=== PATIENT | male | born 1950 | race Caucasian/White ===

== ENCOUNTER → 2024-02-20 12:41 | Outpatient (CLI) | payer MEDICARE, SELFPAY ==
--- NOTE | 2024-02-20 | DI.MRI.S_ITS ---
PROCEDURE: MR ANKLE RT WO CON INDICATIONS: Pain in right foot TECHNIQUE: Noncontrast sagittal T1 spin echo and T2 fast spin echo with fat saturation, axial proton density fast spin echo and T2 fast spin echo with fat saturation, coronal T1 spin echo and T2 fast spin echo with fat saturation through the ankle/hindfoot. COMPARISON: [facility] [place], [place], XR FOOT 3 VIEWS WEIGHT BEARING RIGHT, 02/05/2024, 13:51. FINDINGS: Image quality: Excellent. Bones and joints: No acute trabecular bone injury or fracture. No hindfoot coalitions. No osteochondral injuries of the talar dome. Degenerative spurring is seen at the dorsal aspect of the talonavicular joint. Medial structures: The deltoid ligament and the spring ligament complex are intact. Moderate fluid is seen in the posterior tibialis, flexor digitorum longus, and flexor hallucis longus tendons sheaths compatible with tenosynovitis. The posterior tibial neurovascular bundle appears normal within the tarsal tunnel, without extrinsic mass effect. Lateral structures: Remote prior low-grade sprains of the anterior talofibular ligament and the calcaneofibular ligament. Posterior talofibular ligament is intact. The anterior and posterior tibiofibular ligaments are intact. Mild peroneus brevis and longus tendinosis. The sinus tarsi demonstrates normal fatty signal. Anterior structures: The tibialis anterior, extensor hallucis longus, and extensor digitorum longus tendons appear intact. Posterior and plantar structures: Small amount of fluid is seen in Kager's fat pad compatible with Achilles peritenonitis. Mild thickening of the tendon may also indicate tendinosis. Focal fluid signal is seen at the origin of the central band of the plantar fascia with surrounding soft tissue and osseous edema, consistent with focal fascial tearing. Findings are superimposed on chronic fascia but the. No osseous fracture is seen. A small mildly edematous calcaneal enthesophyte is present. No abductor digiti minimi muscle atrophy to suggest [place] neuropathy. IMPRESSION: 1. Focal high-grade partial tearing of the proximal plantar fascia with surrounding soft tissue and osseous edema, superimposed on chronic fasciitis. No osseous fracture. 2. Mild Achilles tendinosis and peritenonitis. 3. Moderate tenosynovitis of the medial flexor tendons. 4. Remote prior low-grade sprains of the anterior talofibular ligament and calcaneofibular ligament. 5. Mild peroneus brevis and longus tendinosis. Approved by: Uriel Vela M.D. on 02/21/2024 at 10:00
== END ==
PROVIDERS: Family Provider Nurse Practitioner; PCP Nurse Practitioner; Referring Provider Orthopaedic Surgery Foot and Ankle Surgery; Visit Provider Orthopaedic Surgery Foot and Ankle Surgery
DX: M76.61 Achilles tendinitis, right leg (principal); M72.2 Plantar fascial fibromatosis; S93.411A Sprain of calcaneofibular ligament of right ankle, initial encounter; S93.491A Sprain of other ligament of right ankle, initial encounter; M65.871 Other synovitis and tenosynovitis, right ankle and foot; M79.671 Pain in right foot
CPT/HCPCS: 73721

== ENCOUNTER 2025-01-09 19:15 | Emergency (ER) | payer MEDICARE, SELFPAY ==
[2025-01-09 19:15] VITALS: BP 167/78; PULSE 77; RESP 18; TEMP 36.4; O2SAT 96; BMI 25.7
--- NOTE | 2025-01-09 19:21 | DI.RAD.S_ITS ---
PROCEDURE: XR FINGER RT MIN 2V INDICATIONS: LAC injury R hand middle finger, cut w/ meat saw TECHNIQUE: AP hand, 2 views of the 3rd finger(s) acquired. COMPARISON: [facility], , XR FINGER(S) RIGHT, 02/24/2022, 16:36. FINDINGS: Bones: Overlying bandage. Oblique fracture of the 3rd digit distal phalanx. No dislocations. No suspicious bony lesions. Soft tissues: No suspicious soft tissue calcifications. IMPRESSION: Oblique fracture of the 3rd digit distal phalanx. Dictated by: Hieu Donis M.D. on 01/09/2025 at 20:05 Approved by: Hieu Donis M.D. on 01/09/2025 at 20:07
[2025-01-09] MEDS: TET,DIPH,PERTUSS(ACELL),VAC/PF 0.5 ML SYRINGE IM (19:32)
[2025-01-09] MEDS: cephALEXin 250 MG CAPSULE 500 MG PO (20:05)
[2025-01-09] MEDS: ACETAMINOPHEN 325 MG TABLET 975 MG PO (20:36)
--- NOTE | 2025-01-09 20:52 | ED_ITS ---
HPI - Wound/Laceration General Chief Complaint: Wound/Laceration Stated Complaint: finger laceration Time Seen by Provider: 01/09/25 19:26 Source: patient Mode of arrival: Ambulatory History of Present Illness HPI narrative: 74-year-old male was cutting piglet with a knife, sustained laceration to his left middle finger, few hours ago, bleeding, dressed the wound. Last tetanus greater than 5 years ago. No known drug allergies. No other injuries known. He does not take chronic blood thinner medications. Related Data Home Medications Medication Instructions Recorded Confirmed Fish Oil (Fish Oil 500 MG Softgel) 500 mg PO TID ##0 04/13/11 09/04/24 GLUCOSAMINE SULFATE 500 mg PO TID ##0 04/13/11 09/04/24 IBUPROFEN (Ibuprofen) 200 mg PO PRN ##0 04/13/11 09/04/24 VITAMIN B COMPLEX (Vitamin B 1 tab PO Q DAY ##0 04/13/11 09/04/24 Complex) [night restwith felipe] ##0 04/13/11 09/04/24 ascorbic acid (vitamin C) 500 mg 500 mg PO QDAY ##0 04/13/11 09/04/24 tablet cholecalciferol (vitamin D3) 50 2,000 iu PO Q DAY ##0 04/13/11 09/04/24 mcg (2,000 unit) capsule (Vitamin D3) SELENIUM (#SELENIUM) 200 mcg PO QDAY ##0 08/19/12 09/04/24 Saw [place] 500 mg PO TID ##0 08/19/12 09/04/24 lisinopril 20 mg tablet 20 mg PO ONCE PM 09/04/24 09/04/24 Previous Rx's Medication Instructions Recorded hydrochlorothiazide 25 mg tablet 25 mg PO QAM blood pressure #90 11/03/24 tabs sildenafil 50 mg tablet 50 mg PO DAILY PRN sexual activity 01/06/25 #20 tabs cephalexin 500 mg capsule 500 mg PO QID 7 days #28 caps 01/09/25 Allergies Allergy/AdvReac Type Severity Reaction Status Date / Time No Known Drug Allergies Allergy Verified 01/09/25 19:24 Patient History Surgical History (Updated 09/04/24 @ 08:48 by Rafael Conley MD) Status post cholecystectomy Status post knee surgery Family History (Updated 12/26/16 @ 00:00 by Conversion Provider) Father Heart disease Grandfather Cancer Grandmother Heart disease Mother Age: 94 Heart disease High cholesterol Stroke Exam Narrative Exam Narrative: GENERAL: Well-developed patient, in mild distress. HEAD: Atraumatic. Normocephalic. EYES: Pupils equal round and reactive. Extraocular motions intact. No scleral icterus. No injection or drainage. ENT: Nose without bleeding, purulent drainage. Throat without erythema, tonsillar hypertrophy or exudate. Airway patent. NECK: Trachea midline. Non tender CARDIOVASCULAR: Regular rate and rhythm without murmurs, gallops, or rubs. RESPIRATORY: Clear to auscultation. Breath sounds equal bilaterally. No wheezes, rales, or rhonchi. GASTROINTESTINAL: Abdomen soft, non-tender, nondistended. EXTREMITIES: No edema or joint tenderness. Right middle finger volar radial aspect laceration and distal phalanx. No other injuries obvious, can extend and flex finger at MCP PIP DIP. BACK: Nontender without deformity or crepitance. No flank tenderness. NEURO: AOx3. Motor functions grossly nonfocal SKIN: No rash or erythema of visible areas Initial Vital Signs Initial Vital Signs: Vital Signs Temperature 97.6 F 01/09/25 19:15 Pulse Rate 77 01/09/25 19:15 Respiratory Rate 18 01/09/25 19:15 Blood Pressure 167/78 H 01/09/25 19:15 Pulse Oximetry 96 01/09/25 19:15 Oxygen Delivery Method Room Air 01/09/25 19:15 Procedures Laceration Repair Laceration 1: Time of procedure: 21:53 Site: hand (Right distal middle finger) Side (If applicable): right Size (cm): 2 Description: linear (Curvilinear laceration) Depth: simple, single layer Local Anesthetic: bupivacaine 0.25% (digital block both sides with good effect) Amount of anesthesia used (mL): 3 Pre-repair: wound explored Skin layer closed with: nylon Skin layer suture size: 4-0 Number of sutures: 7 Technique: simple, interrupted Course Orders Ordered: Discontinued Medications Acetaminophen (Acetaminophen 325 Mg Tablet) 975 mg PO NOW ONE Stop: 01/09/25 20:30 Last Admin: 01/09/25 20:36 Dose: 975 mg Documented By: C Hydrocodone Bitart/Acetaminophen (Hydrocodone/Acet 5/325 Prepack) 1 bottle [facility] [place] DIRECTED ONE Stop: 01/09/25 21:53 Last Admin: 01/09/25 21:55 Dose: 1 bottle Documented By: CAMRYN Bacitracin (Bacitracin Oint 0.9 Gm Pckt) 1 applic TOP NOW ONE Stop: 01/09/25 21:53 Last Admin: 01/09/25 21:55 Dose: 1 applic Documented By: CAMRYN Cephalexin HCl (Cephalexin 250 Mg Capsule) 500 mg PO NOW ONE Stop: 01/09/25 19:48 Last Admin: 01/09/25 20:05 Dose: 500 mg Documented By: CAMRYN Diphtheria/Tetanus/Acell Pertussis (Tet,Diph,Pertuss(Acell),Vac/Pf 0.5 Ml Syringe) 0.5 ml IM .ONCE ONE Stop: 01/09/25 19:23 Last Admin: 01/09/25 19:32 Dose: 0.5 ml Documented By: VANITA Vital Signs Vital signs: Vital Signs - 8 hr 01/09/25 22:00 01/09/25 22:00 Pulse Rate 77 Respiratory Rate 18 Blood Pressure 148/63 H Pulse Oximetry 95 MDM - Wound/Laceration MDM Narrative Medical decision making narrative: Right middle finger laceration cutting piglet with knife. Digital block with Marcaine, primary closure. X-ray was suspicious for distal tuft fracture. Given oral antibiotics for suspected open fracture, Keflex 1st dose in the emergency department, prescription sent to his pharmacy. Pain medication home pack hydrocodone. Discharge home, we will be flown back to his home [place] boyfriend who is a pilot control operator who was waiting at bedside. Wound check advised with Orthopedic surgery, clinic contact information provided. Discharge Plan Departure Patient Disposition: Home Clinical Impression: Finger laceration, Finger fracture Instructions: How to Care for a Laceration After Repair, DI for Laceration Repair Activity Restrictions/Additional Instructions: Laceration right middle fingertip area, I could not see any tendinous structures, the laceration was sort of in the lateral aspect around, however there was a bony fracture, it is possible to have a tendon injury as well. The fingertip was sutured into place to create better alignment. Antibiotics were given, 1st dose cephalexin, further antibiotics sent to your pharmacy, take antibiotics as directed. Take pain medications as directed. Injury at increased wound of poor healing, infection, might require future revision or opening or even fingertip amputation. Advised recheck with Orthopedic surgery, recheck this Sunday in ortho clinic. Contact information given for Dr. Montes, who was local orthopedic surgeon who was on-call tonight. Return earlier to this/nearest emergency department for any change worsening symptoms or any concerns prior Prescriptions: New cephalexin 500 mg capsule 500 mg PO QID 7 Days Qty: 28 0RF No Action IBUPROFEN (Ibuprofen) 200 mg PO PRN Qty: 0 Fish Oil (Fish Oil 500 MG Softgel) 500 mg PO TID Qty: 0 cholecalciferol (vitamin D3) [Vitamin D3] 2,000 UNIT capsule 2,000 iu PO Q DAY Qty: 0 VITAMIN B COMPLEX (Vitamin B Complex) 1 tab PO Q DAY Qty: 0 ascorbic acid (vitamin C) 500 MG tablet 500 mg PO QDAY Qty: 0 GLUCOSAMINE SULFATE 500 mg PO TID Qty: 0 [night restwith felipe] Qty: 0 SELENIUM (#SELENIUM) 200 mcg PO QDAY Qty: 0 Saw [place] 500 mg PO TID Qty: 0 hydrochlorothiazide 25 mg tablet 25 mg PO QAM Qty: 90 0RF sildenafil 50 mg tablet 50 mg PO DAILY PRN (Reason: sexual activity) Qty: 20 0RF Rx Instructions: administer 30 minutes to 4 hours before activity lisinopril 20 mg tablet 20 mg PO ONCE PM Referrals: Oumou Garcia ARNP [Primary Care Provider] - Savanna Montes MD [Physician] - Stand Alone Forms: Patient Portal/API/Survey
[2025-01-09 21:01] VITALS: BP 137/75; PULSE 66; RESP 16; O2SAT 97
[2025-01-09 21:30] VITALS: BP 145/73; PULSE 71; O2SAT 96
[2025-01-09] MEDS: HYDROCODONE/ACET 5/325 PREPACK 1 BOTTLE MISC (21:55)
[2025-01-09] MEDS: BACITRACIN OINT 0.9 GM PCKT 1 APPLIC TOP (21:55)
[2025-01-09 22:00] VITALS: BP 148/63; PULSE 77; RESP 18; O2SAT 95
== END 2025-01-09 22:31 | disposition home or self-care (01) ==
PROVIDERS: Emergency Provider Emergency Medicine; Family Provider Nurse Practitioner; PCP Nurse Practitioner
DX: S62.632B Displaced fracture of distal phalanx of right middle finger, initial encounter for open fracture (principal); W26.0XXA Contact with knife, initial encounter; Z23 Encounter for immunization
CPT/HCPCS: 12001; 29130; 73140; 90471; 99284; 90715